=== PATIENT | female | born 1940 | race Caucasian/White ===

== ENCOUNTER → 2023-01-05 | Outpatient (CLI) | payer OTHER ==
[~2023-01-05] MED LIST: ALBUAER3 IN; ASPI1TAB20 PO; CALCTAB62 OR; GABA-1250 PO; LEVO112T4 PO; LORA-622 PO
== END | disposition home or self-care (01) ==
LOC: XYW 12:41
PROVIDERS: ATTEND Student in an Organized Health Care Education/Training Program
DX: I35.1 Nonrheumatic aortic (valve) insufficiency (principal); R07.9 Chest pain, unspecified
CPT/HCPCS: 93306